=== PATIENT | female | born 2000 | race Caucasian/White ===

== ENCOUNTER 2021-04-09 16:43 | Emergency (ER) | payer OTHER ==
[~2021-04-09] VITALS: Ht 160 cm; Wt 59.1 kg
[2021-04-09] MEDS ORDERED: birth control (16:55)
[2021-04-09] MEDS ORDERED: METR-265 PO (16:56)
[2021-04-09 18:05] VITALS: BP 141/71
== END 2021-04-09 18:06 | disposition home or self-care (01) ==
LOC: M ED 16:43 → EDBD 16:43 → M ED 18:06
DX: S16.1XXA Strain of muscle, fascia and tendon at neck level, initial encounter (principal); V49.00XA Driver injured in collision with unspecified motor vehicles in nontraffic accident, initial encounter